=== PATIENT | female | born 1955 | race Caucasian/White ===

== ENCOUNTER 2017-05-22 05:15 | Day surgery (SDC) | payer OTHER ==
[2017-05-20 12:28] LABS: APPEARANCE,URINE CLEAR; BILIRUBIN,URINE NEGATIVE (NEGATIVE); COLOR,URINE STRAW; GLUCOSE, URINE NEGATIVE (NEGATIVE); KETONES,URINE NEGATIVE (NEGATIVE); LEUKOCYTE ESTERASE,URINE NEGATIVE (NEGATIVE); NITRITE,URINE NEGATIVE (NEGATIVE); PROTEIN,URINE NEGATIVE (NEGATIVE); URINE SPECIFIC GRAVITY 1.009; UROBILINOGEN,URINE NEGATIVE mg/dL (<2.0)
--- NOTE | 2017-05-20 12:31 | RADIOLOGY REPORT (SQ) ---
EXAM DESCRIPTION: CHEST PA/LATERAL COMPLETED DATE/TIME: 05/20/2017 12:23 pm REASON FOR STUDY: PRE-OP COMPARISON: None. EXAM PARAMETERS: NUMBER OF VIEWS: two views TECHNIQUE: Digital Frontal and Lateral radiographic views of the chest acquired. RADIATION DOSE: NA LIMITATIONS: none FINDINGS: LUNGS AND PLEURA: No opacities, masses or pneumothorax. No pleural effusion. MEDIASTINUM AND HILAR STRUCTURES: No masses or contour abnormalities. HEART AND VASCULAR STRUCTURES: Heart normal size. No evidence for failure. BONES: No acute findings. HARDWARE: None in the chest. OTHER: No other significant finding. IMPRESSION: NO SIGNIFICANT RADIOGRAPHIC FINDING IN THE CHEST. TECHNICAL DOCUMENTATION: JOB ID: [id number] [employer]- All Rights Reserved
[2017-05-20 12:45] LABS: HEMATOCRIT 41.3 % (36.0-47.0); HEMOGLOBIN 13.7 g/dL (12.0-15.5); MEAN CORPUSCULAR HEMOGLOBIN 28.8 pg (27.0-33.4); MEAN CORPUSCULAR HGB CONC 33.3 g/dL (32.0-36.0); MEAN CORPUSCULAR VOLUME 87 fl (80-97); PLATELET COUNT 303 10^3/uL (150-450); RED BLOOD COUNT 4.77 10^6/uL (3.72-5.28); RED CELL DISTRIBUTION WIDTH 13.2 % (11.5-14.0); WHITE BLOOD COUNT 8.5 10^3/uL (4.0-10.5)
[2017-05-20 13:05] LABS: ANION GAP 14 (5-19); BLOOD UREA NITROGEN 18 mg/dL (7-20); CALCIUM 10.5 mg/dL (8.4-10.2); CARBON DIOXIDE 30 mmol/L (22-30); CHLORIDE 96 mmol/L (98-107); GLUCOSE 88 mg/dL (75-110); POTASSIUM 4.4 mmol/L (3.6-5.0); SODIUM 139.5 mmol/L (137-145)
--- NOTE | 2017-05-20 21:27 | EKG REPORT ---
SEVERITY:- NORMAL ECG - SINUS RHYTHM : Confirmed by: Silvia Neves 20-May-2017 21:26:55
[~2017-05-22 05:15] MED LIST: CEFAZOLIN 1 GM/D5W RTU 1 GM/50 ML RTUPB IV PRN; LACTATED RINGERS 1000 ML IV PRN; LIDOCAINE 0.5% INJ-PF (5 MG/ML) 50 ML SDV SUBCUT PRN
[2017-05-22] MEDS ORDERED: FENTANYL CITRATE INJ/PF 100 MCG/2 ML AMPUL ONE (06:58)
[2017-05-22] MEDS ORDERED: PROPOFOL INJ 200 MG/20 ML VIAL IV ONE (06:58)
[2017-05-22] MEDS ORDERED: ONDANSETRON HCL INJ/PF 4 MG/2 ML SDV ONE (06:58)
[2017-05-22] MEDS ORDERED: ACETAMINOPHEN 100 ML IV ONE (06:58)
[2017-05-22] MEDS ORDERED: MIDAZOLAM 2 MG/2 ML INJ ONE (06:58)
[2017-05-22] MEDS ORDERED: LIDOCAINE 1%/EPINEPHRINE INJ 20 ML VIAL ONE (07:30)
[2017-05-22] MEDS ORDERED: FENTANYL CITRATE INJ/PF 100 MCG/2 ML AMPUL IV PRN ×3 (07:37)
[2017-05-22] MEDS ORDERED: MORPHINE SULFATE 10 MG/ML INJ IV PRN (07:37)
[2017-05-22] MEDS ORDERED: MEPERIDINE HCL/PF INJ 25 MG/1 ML DISP.SYRIN IV PRN (07:37)
[2017-05-22] MEDS ORDERED: DIPHENHYDRAMINE HCL 50 MG/ML VIAL IV PRN (07:37)
[2017-05-22] MEDS ORDERED: PROMETHAZINE HCL INJ 25 MG/1 ML VIAL IV PRN (07:37)
[2017-05-22] MEDS ORDERED: OXYCODONE-ACETAMINOPHEN 5-325 MG TABLET PO PRN ×2 (08:25→08:26)
[2017-05-22] MEDS ORDERED: PROMETHAZINE HCL INJ 25 MG/1 ML VIAL IM PRN (08:27)
[2017-05-22] MEDS ORDERED: MORPHINE SULFATE 10 MG/ML INJ INJ PRN (08:27)
[2017-05-22] MEDS ORDERED: RINGERS SOLUTION,LACTATED 1,000 ML IV PRN (08:28)
--- NOTE | 2017-05-22 08:31 | OPERATIVE REPORT E ---
Operative Report NAME: RED HUMPHREY : 1955 AGE: 61Y DATE OF SURGERY: 05/22/2017 ROOM: PREOPERATIVE DIAGNOSIS: Postmenopausal bleeding. POSTOPERATIVE DIAGNOSIS: Endometrial polyp. PROCEDURE: Operative hysteroscopy, polypectomy. SURGEON: TUCKER VITALE M.D. COMPLICATIONS: None. ANESTHESIA: LMAC, paracervical block. ESTIMATED BLOOD LOSS: Less than 10 mL. FINDINGS: Approximately 10 mm endometrial polyp, normal endometrial cavity otherwise noted. Biopsy performed throughout after polypectomy. INDICATIONS FOR PROCEDURE: The patient had an episode of postmenopausal bleeding and an endometrial lesion was noted on ultrasound. Due to the caliber of her vagina, she was brought to the operating room for further assessment due to visualization issues. The usual risks of bleeding, infection, anesthesia, and damage to organs and tissues were discussed and the patient understood. DESCRIPTION OF PROCEDURE: The patient was taken to the operating room after surgical timeout performed, EUA performed, and bladder was left undrained. SCDs were on and the cervix was slowly methodically dilated to admit an operative hysteroscope using lacrimal duct dilators all the way to the appropriate branch of the level for the scope. The cervix was then infiltrated of approximately 5 mL of 1% lidocaine with epinephrine. The scope was inserted. Polyp was noted. MyoSure device was deployed. The lesion was removed en toto. Sampling was done throughout leaving the denuded endometrial finding present. At completion of procedure, instruments were removed. Patient awakened and taken to recovery in stable condition. Bleeding was nil. DICTATING PHYSICIAN: TUCKER VITALE M.D. [id number] Y#: [id number] ID: [id number] JOB#: [id number] ACCT: [id number] cc:TUCKER VITALE M.D. >
[2017-05-22 10:10] VITALS: BP 128/53
== END 2017-05-22 09:40 | disposition home or self-care (01) ==
LOC: OROUT 05:15
PROVIDERS: ATTEND Specialist
PROC: 0UB98ZX Excision of Uterus, Via Natural or Artificial Opening Endoscopic, Diagnostic (ICD-10-PCS; principal; 2017-05-22 07:15)
DX: N95.0 Postmenopausal bleeding (principal); E11.9 Type 2 diabetes mellitus without complications; I10 Essential (primary) hypertension; E78.00 Pure hypercholesterolemia, unspecified; N84.0 Polyp of corpus uteri; D64.9 Anemia, unspecified; Z88.6 Allergy status to analgesic agent; Z79.82 Long term (current) use of aspirin
CPT/HCPCS: 93005; 86900; 86901; 36415; 86850; 82962; 85027; 80048; 81001; 88305 ×2; 71046; 93010; 58558; J2250; J0690; J3010; J3490; J2405; J2704; J0131; 952

== ENCOUNTER 2017-11-09 13:13 | Day surgery (SDC) | payer OTHER ==
[~2017-11-09 13:13] MED LIST changes: +BUPIVACAINE HCL 0.25 % INJ/PF (2.5 MG/1 ML) 30 ML VIAL ONE; -CEFAZOLIN 1 GM/D5W RTU 1 GM/50 ML RTUPB IV PRN; +CIPROFLOXACIN 400 MG/D5W RTU 400 MG/200 ML RTUPB IV PRN; -LACTATED RINGERS 1000 ML IV PRN; +LIDOCAINE 0.5% INJ-PF (5 MG/ML) 50 ML SDV ONE; -LIDOCAINE 0.5% INJ-PF (5 MG/ML) 50 ML SDV SUBCUT PRN; +RINGERS SOLUTION,LACTATED 1,000 ML IV PRN; +SUCCINYLCHOLINE CHLORIDE INJ 200 MG/10 ML VIAL ONE
[2017-11-09 13:54] LABS: HEMATOCRIT 38.5 % (36.0-47.0); HEMOGLOBIN 12.9 g/dL (12.0-15.5); MEAN CORPUSCULAR HEMOGLOBIN 29.6 pg (27.0-33.4); MEAN CORPUSCULAR HGB CONC 33.6 g/dL (32.0-36.0); MEAN CORPUSCULAR VOLUME 88 fl (80-97); PLATELET COUNT 279 10^3/uL (150-450); RED BLOOD COUNT 4.36 10^6/uL (3.72-5.28); RED CELL DISTRIBUTION WIDTH 13.5 % (11.5-14.0); WHITE BLOOD COUNT 9.8 10^3/uL (4.0-10.5)
[2017-11-09 14:13] LABS: ALANINE AMINOTRANSFERASE 36 U/L (9-52); ALBUMIN 4.4 g/dL (3.5-5.0); ALKALINE PHOSPHATASE 58 U/L (38-126); ANION GAP 12 (5-19); ASPARTATE AMINO TRANSFERASE 25 U/L (14-36); BILIRUBIN,DIRECT 0.2 mg/dL (0.0-0.4); BILIRUBIN,TOTAL 0.7 mg/dL (0.2-1.3); BLOOD UREA NITROGEN 20 mg/dL (7-20); CALCIUM 9.2 mg/dL (8.4-10.2); CARBON DIOXIDE 26 mmol/L (22-30); CHLORIDE 104 mmol/L (98-107); GLUCOSE 90 mg/dL (75-110); POTASSIUM 4.5 mmol/L (3.6-5.0); SODIUM 141.5 mmol/L (137-145); TOTAL PROTEIN 7.3 g/dL (6.3-8.2)
[2017-11-09] MEDS ORDERED: ONDANSETRON 4 MG TAB.RAPDIS ONE (14:31)
[2017-11-09] MEDS ORDERED: MEPERIDINE HCL/PF INJ 25 MG/1 ML DISP.SYRIN IV PRN (14:42)
[2017-11-09] MEDS ORDERED: MORPHINE SULFATE 10 MG/ML INJ IV PRN (14:42)
[2017-11-09] MEDS ORDERED: ONDANSETRON HCL INJ/PF 4 MG/2 ML SDV IV PRN (14:42)
[2017-11-09] MEDS ORDERED: FENTANYL CITRATE INJ/PF 100 MCG/2 ML AMPUL IV PRN ×3 (14:42)
[2017-11-09] MEDS ORDERED: DIPHENHYDRAMINE HCL 50 MG/ML VIAL IV PRN (14:42)
[2017-11-09] MEDS ORDERED: PROMETHAZINE HCL INJ 25 MG/1 ML VIAL IV PRN ×2 (14:42)
[2017-11-09] MEDS ORDERED: FENTANYL CITRATE INJ/PF 100 MCG/2 ML AMPUL ONE (14:46)
[2017-11-09] MEDS ORDERED: DEXAMETHASONE SOD PHOSPHATE INJ 4 MG/1 ML VIAL ONE (14:46)
[2017-11-09] MEDS ORDERED: ONDANSETRON HCL INJ/PF 4 MG/2 ML SDV ONE (14:46)
[2017-11-09] MEDS ORDERED: LIDOCAINE 2% INJ-PF (20 MG/ML) 10 ML AMPUL ONE (14:46)
[2017-11-09] MEDS ORDERED: MIDAZOLAM 2 MG/2 ML INJ ONE (14:46)
[2017-11-09] MEDS ORDERED: PROPOFOL INJ 200 MG/20 ML VIAL IV ONE (14:47)
--- NOTE | 2017-11-09 16:01 | Discharge Summary ---
Discharge Summary (SDC) - Discharge Final Diagnosis: #1 foreign body in right foot. 2. COPD. 3. Irritable bowel syndrome. 4. Diabetes mellitus type 2. 5. Hypertension. Date of Surgery: 11/09/17 Discharge Date: 11/09/17 Condition: Good Treatment or Instructions: Discharge home [after recovery per ASU criteria]. Diet diabetic,as tolerated, when fully awake advance as tolerated. Activities within moderation encouraged. Follow up in my office by appointment in about [1 week]. Call for appointment. Leave wounds [covered], [keep clean and dry, until office visit in 1 week]. Use crutches and orthopedic shoes for foot protection. Hold of on school/work [until evaluation in office]. Meds per med rec. Percocet. May shower [in 48 hrs], [try to keep operated area as dry as possible]. Prescriptions: Oxycodone HCl/Acetaminophen [Percocet 5-325 mg Tablet] 1 tab PO ASDIR PRN #15 tab PRN Reason: Referrals: MIGUEL HOOK MD [Primary Care Provider] - Discharge Diet: Other (Comments) - Diabetic Respiratory Treatments at Home: Deep Breathing/Coughing Discharge Activity: Activity As Tolerated Report the Following to Your Physician Immediately: Shortness of Breath, Unusual Bleeding
--- NOTE | 2017-11-09 16:25 | RADIOLOGY REPORT (SQ) ---
EXAM DESCRIPTION: NO CHG FLUORO; FOOT RIGHT 2 VIEWS COMPLETED DATE/TIME: 11/09/2017 4:17 pm; 11/09/2017 4:18 pm REASON FOR STUDY: FB REMOVAL RT FOOT S90.851A SUPERFICIAL FOREIGN BODY, RIGHT FOOT, INITIAL ENCOU COMPARISON: None. FLUOROSCOPY TIME: 0.4 minutes. 6 images saved to PACS. TECHNIQUE: Intra-operative images acquired during surgical procedure to evaluate progress. NUMBER OF IMAGES: 6 images. LIMITATIONS: None. FINDINGS: Images of the foot acquired during removal of a foreign body from the soft tissues. IMPRESSION: IMAGE(S) OBTAINED DURING PROCEDURE. COMMENT: Quality ID 145: Final reports for procedures using fluoroscopy that document radiation exp osure indices, or exposure time and number of fluorographic images (if radiation exposure indices are not available) Please consult full operative report of the attending physician for description of the procedure. TECHNICAL DOCUMENTATION: JOB ID: [id number] [employer]- All Rights Reserved Reading location - IP/workstation name: [email or web address]
--- NOTE | 2017-11-09 16:25 | RADIOLOGY REPORT (SQ) ---
EXAM DESCRIPTION: NO CHG FLUORO; FOOT RIGHT 2 VIEWS COMPLETED DATE/TIME: 11/09/2017 4:17 pm; 11/09/2017 4:18 pm REASON FOR STUDY: FB REMOVAL RT FOOT S90.851A SUPERFICIAL FOREIGN BODY, RIGHT FOOT, INITIAL ENCOU COMPARISON: None. FLUOROSCOPY TIME: 0.4 minutes. 6 images saved to PACS. TECHNIQUE: Intra-operative images acquired during surgical procedure to evaluate progress. NUMBER OF IMAGES: 6 images. LIMITATIONS: None. FINDINGS: Images of the foot acquired during removal of a foreign body from the soft tissues. IMPRESSION: IMAGE(S) OBTAINED DURING PROCEDURE. COMMENT: Quality ID 145: Final reports for procedures using fluoroscopy that document radiation exp osure indices, or exposure time and number of fluorographic images (if radiation exposure indices are not available) Please consult full operative report of the attending physician for description of the procedure. TECHNICAL DOCUMENTATION: JOB ID: [id number] [employer]- All Rights Reserved Reading location - IP/workstation name: [email or web address]
--- NOTE | 2017-11-09 17:09 | Operative Report ---
Operative Report DATE OF SURGERY: 11/09/17 PREOPERATIVE DIAGNOSIS: #1 foreign body in right foot. 2. COPD. 3. Irritable bowel syndrome. 4. Diabetes mellitus type 2. 5. Hypertension. POSTOPERATIVE DIAGNOSIS: #1 foreign body in right foot. 2. COPD. 3. Irritable bowel syndrome. 4. Diabetes mellitus type 2. 5. Hypertension. OPERATION: Fluoroscopically guided location and removal of foreign body in right foot. SURGEON: DAVID OCASIO SUPERVISOR RECORD PRESS: None. ANESTHESIA: GA TISSUE REMOVED OR ALTERED: Portion of glass was removed and is to be given to the patient. Along with the specimen photograph. COMPLICATIONS: None. ESTIMATED BLOOD LOSS: 5 mL. INTRAOPERATIVE FINDINGS: Of a well-defined sharp, radiolucent object in the right foot situated just posterior to the instep. Quite deep in the foot estimated to be about 1-1/2-2 cm beneath the skin. Fluoroscopy was invaluable in locating this lesion. The lesion was removed in entirety. There is a question of the more superficial. Possibly glass about 2 mm across. Not palpable nor readily accessible. This may need to be observed. PROCEDURE: PROCEDURE: The right foot was prepared with [Betadine] and draped out with sterile linen. After the"universal time-out", in which it was confirmed that the patient [ did receive antibiotic], the procedure commenced. The patient was appropriately anesthetized. With the patient's foot off the edge of the bed x-ray was used to locate this mass in 2 dimensions. 2 x 22-gauge spinal needles were inserted at right angles to the x-ray beam. In this way the topographic location of and depth of the mass was ascertained. An appropriate incision was sketched and locally anesthetized. An incision was now made approximately 2 cm long and in Marin's lines. The wound was probed. The wound was spread apart with a Weitlaner retractor. Located and gently grasped with a hemostat and withdrawn in entirety. It was put in the container and the specimen photographs taken. There seems no need to send it to pathology and it is to be given to the patient. X-ray was also used to try to identify a possibly small mass about 2 mm. Also by palpation. This did not seem feasible without damaging functional elements of the foot. The search was therefore abandoned. The wound the wound was now irrigated and closed using interrupted 3 0 Prolene vertical mattress sutures, dressed and the procedure concluded.
[2017-11-09 18:29] VITALS: BP 169/96
== END 2017-11-09 18:03 | disposition home or self-care (01) ==
LOC: OROUT 13:13
PROVIDERS: ATTEND Surgery
DX: S90.851A Superficial foreign body, right foot, initial encounter (principal); X58.XXXA Exposure to other specified factors, initial encounter; J44.9 Chronic obstructive pulmonary disease, unspecified; E11.9 Type 2 diabetes mellitus without complications; I10 Essential (primary) hypertension; K58.9 Irritable bowel syndrome, unspecified; M19.90 Unspecified osteoarthritis, unspecified site; M10.9 Gout, unspecified; E66.9 Obesity, unspecified; Z68.41 Body mass index [BMI] 40.0-44.9, adult; Z87.891 Personal history of nicotine dependence; Z88.6 Allergy status to analgesic agent; Z88.0 Allergy status to penicillin; Z79.899 Other long term (current) drug therapy
CPT/HCPCS: 36415; 85027; 80053; 73620; 28190; J2250; J1100; S0119; J3010; J3490 ×2; J0330; J2405; J2704; J0744; 01470

== ENCOUNTER 2019-07-05 04:03 | Emergency (ER) | payer OTHER ==
[2019-07-05 04:42] LABS: ABSOLUTE EOSINOPHILS # (AUTO) 0.1 10^3/uL (0.0-0.6); ABSOLUTE LYMPHOCYTES (AUTO) 1.6 10^3/uL (0.5-4.7); ABSOLUTE MONOCYTES (AUTO) 0.3 10^3/uL (0.1-1.4); ABSOLUTE NEUT (AUTO) 8.4 10^3/uL (1.7-8.2); BASOPHILS % (AUTO) 0.1 % (0-2); EOSINOPHILS % (AUTO) 0.6 % (0-6); HEMATOCRIT 42.6 % (36.0-47.0); HEMOGLOBIN 14.2 g/dL (12.0-15.5); LYMPHOCYTES % (AUTO) 15.3 % (13-45); MEAN CORPUSCULAR HEMOGLOBIN 29.2 pg (27.0-33.4); MEAN CORPUSCULAR HGB CONC 33.4 g/dL (32.0-36.0); MEAN CORPUSCULAR VOLUME 88 fl (80-97); MONOCYTES % (AUTO) 3.3 % (3-13); PLATELET COUNT 275 10^3/uL (150-450); RED BLOOD COUNT 4.86 10^6/uL (3.72-5.28); RED CELL DISTRIBUTION WIDTH 13.5 % (11.5-14.0); SEGMENTED NEUTROPHILS % (AUTO) 80.7 % (42-78); TOTAL CELLS COUNTED % (AUTO) 100 %; WHITE BLOOD COUNT 10.4 10^3/uL (4.0-10.5)
[2019-07-05 04:54] LABS: APPEARANCE,URINE CLEAR; BILIRUBIN,URINE NEGATIVE (NEGATIVE); COLOR,URINE YELLOW; GLUCOSE, URINE NEGATIVE (NEGATIVE); KETONES,URINE NEGATIVE (NEGATIVE); LEUKOCYTE ESTERASE,URINE NEGATIVE (NEGATIVE); NITRITE,URINE NEGATIVE (NEGATIVE); PROTEIN,URINE 30 mg/dL (NEGATIVE); URINE SPECIFIC GRAVITY 1.021; UROBILINOGEN,URINE NEGATIVE mg/dL (<2.0)
[2019-07-05 05:00] LABS: ALBUMIN 4.8 g/dL (3.5-5.0); ALKALINE PHOSPHATASE 64 U/L (38-126); ANION GAP 9 (5-19); ASPARTATE AMINO TRANSFERASE 23 U/L (14-36); BILIRUBIN,DIRECT 0.3 mg/dL (0.0-0.4); BILIRUBIN,TOTAL 0.5 mg/dL (0.2-1.3); BLOOD UREA NITROGEN 16 mg/dL (7-20); CALCIUM 9.7 mg/dL (8.4-10.2); CARBON DIOXIDE 31 mmol/L (22-30); CHLORIDE 100 mmol/L (98-107); GLUCOSE 142 mg/dL (75-110); POTASSIUM 4.5 mmol/L (3.6-5.0)
--- NOTE | 2019-07-05 06:11 | RADIOLOGY REPORT (SQ) ---
CT abdomen and pelvis with contrast on 07/05/2019 at 5:43 AM CLINICAL INDICATION: Periumbilical abdominal pain, nausea TECHNIQUE: Multiple axial images are obtained throughout the abdomen and pelvis following the administration of IV contrast, 93 mL of Omnipaque 350 contrast was administered intravenously without complication. This exam was performed according to our departmental dose-optimization program, which includes automated exposure control, adjustment of the mA and/or kV according to patient size and/or use of iterative reconstruction technique. Total DLP is 2151.3 mGy*cm. COMPARISON: None FINDINGS: Abdomen: The lung bases are clear. The patient is status post cholecystectomy. There is mild fatty infiltration of the liver. There is a tiny left renal cyst. Solid abdominal organs are otherwise unremarkable. Mild vascular calcifications are noted. There is no abdominal adenopathy. There is no free fluid or free air within the abdomen. GI tract is fluid filled including the colon that may be related to gastroenteritis. The abdominal portion of the GI tract is otherwise unremarkable. Pelvis: There is a small amount of free fluid in the pelvis. Pelvic organs appear unremarkable by CT. Pelvic portion of the GI tract including the appendix is otherwise unremarkable. Degenerative changes are noted in the spine. IMPRESSION: 1. Fluid-filled GI tract that may be related to a gastroenteritis. 2. Otherwise no acute abnormality.
[2019-07-05] MEDS ORDERED: DICYCLOMINE HCL 20 MG TABLET PO ONE (06:34)
--- NOTE | 2019-07-05 07:16 | ER Document Report ---
ED GI/ - General Chief Complaint: Abdominal Pain >50 Stated Complaint: ABDOMINAL PAIN Time Seen by Provider: 07/05/19 04:11 Primary Care Provider: JOSHUA PUCKETT DO [Primary Care Provider] - Follow up as needed Mode of Arrival: Medic Information source: Patient Notes: Otherwise healthy 63-year-old female presenting with sharp stabbing mid abdominal pain that started at 9:00 last night. Patient reports associated nausea without vomiting or diarrhea. Patient denies fever. She has not had any sick contacts lately. She denies any recent travel, cough or congestion. TRAVEL OUTSIDE OF THE [place] IN LAST 30 DAYS: No - Related Data Allergies/Adverse Reactions: Penicillins Allergy (Severe, Verified 07/05/19 04:11) ? aspirin [Aspirin] Adverse Reaction (Severe, Verified 07/05/19 04:11) BLEEDING Home Medications: venlanfaxine, spironolatone Past Medical History - General Information source: Patient - Social History Smoking Status: Former Smoker Family History: Reviewed & Not Pertinent Patient has suicidal ideation: No Patient has homicidal ideation: No - Past Medical History Cardiac Medical History: Reports: Hx Hypertension Denies: Hx Congestive Heart Failure, Hx Coronary Artery Disease, Hx Heart Attack Pulmonary Medical History: Reports: Hx Asthma, Hx Bronchitis, Hx COPD - NO INHALERS Denies: Hx Pneumonia Neurological Medical History: Denies: Hx Cerebrovascular Accident, Hx Seizures Endocrine Medical History: Reports: Hx Diabetes Mellitus Type 2 GI Medical History: Denies: Hx Hepatitis, Hx Hiatal Hernia, Hx Ulcer Musculoskeletal Medical History: Reports Hx Arthritis Infectious Medical History: Denies: Hx Hepatitis Past Surgical History: Reports: Hx Cholecystectomy. Denies: Hx Hysterectomy, Hx Mastectomy, Hx Open Heart Surgery, Hx Pacemaker - Immunizations Hx Diphtheria, Pertussis, Tetanus Vaccination: No Hx Pneumococcal Vaccination: 01/17/13 Review of Systems - Review of Systems Constitutional: No symptoms reported EENT: No symptoms reported Cardiovascular: No symptoms reported Respiratory: No symptoms reported Gastrointestinal: Abdominal pain, Nausea, Vomiting Genitourinary: No symptoms reported Female Genitourinary: No symptoms reported Musculoskeletal: No symptoms reported Skin: No symptoms reported Hematologic/Lymphatic: No symptoms reported Neurological/Psychological: No symptoms reported Physical Exam - Vital signs Vitals: Temp Pulse Resp BP Pulse Ox 97.4 F 81 16 169/66 H 98 07/05/19 04:05 07/05/19 04:05 07/05/19 04:05 07/05/19 04:05 07/05/19 04:05 - Notes Notes: PHYSICAL EXAMINATION: GENERAL: Well-appearing, well-nourished and in no acute distress. HEAD: Atraumatic, normocephalic. EYES: Pupils equal round and reactive to light, extraocular movements intact, conjunctiva are normal. ENT: Nares patent, oropharynx clear without exudates. Moist mucous membranes. NECK: Normal range of motion, supple without lymphadenopathy LUNGS: Breath sounds clear to auscultation bilaterally and equal. No wheezes rales or rhonchi. HEART: Regular rate and rhythm without murmurs ABDOMEN: Soft, nontender, nondistended abdomen. No guarding, no rebound. No masses appreciated. Female : deferred Musculoskeletal: Normal range of motion, no pitting or edema. No cyanosis. NEUROLOGICAL: Cranial nerves grossly intact. Normal speech, normal gait. Normal sensory, motor exams PSYCH: Normal mood, normal affect. SKIN: Warm, Dry, normal turgor, no rashes or lesions noted. Course - Re-evaluation Re-evalutation: Laboratory 07/05/19 07/05/19 07/05/19 04:30 04:30 04:35 WBC 10.4 RBC 4.86 Hgb 14.2 Hct 42.6 MCV 88 MCH 29.2 MCHC 33.4 RDW 13.5 Plt Count 275 Lymph % (Auto) 15.3 Dillon % (Auto) 3.3 Eos % (Auto) 0.6 Baso % (Auto) 0.1 Absolute Neuts (auto) 8.4 H Absolute Lymphs (auto) 1.6 Absolute Monos (auto) 0.3 Absolute Eos (auto) 0.1 Absolute Basos (auto) 0.0 Seg Neutrophils % 80.7 H Sodium 139.5 Potassium 4.5 Chloride 100 Carbon Dioxide 31 H Anion Gap 9 BUN 16 Creatinine 0.71 Est GFR ( Amer) > 60 Est GFR (MDRD) Non-Af > 60 Glucose 142 H Calcium 9.7 Total Bilirubin 0.5 Direct Bilirubin 0.3 Neonat Total Bilirubin Not Reportable Neonat Direct Bilirubin Not Reportable Neonat Indirect Bili Not Reportable AST 23 ALT 20 Alkaline Phosphatase 64 Total Protein 8.0 Albumin 4.8 Lipase 68.4 Urine Color YELLOW Urine Appearance CLEAR Urine pH 6.0 Ur Specific Clever 1.021 Urine Protein 30 H Urine Glucose (UA) NEGATIVE Urine Ketones NEGATIVE Urine Blood SMALL H Urine Nitrite NEGATIVE Urine Bilirubin NEGATIVE Urine Urobilinogen NEGATIVE Ur Leukocyte Esterase NEGATIVE Urine WBC (Auto) 3 Urine RBC (Auto) 3 Urine Bacteria (Auto) TRACE Squamous Epi Cells Auto 1 Urine Mucus (Auto) RARE Urine Ascorbic Acid NEGATIVE Abdomen/Pelvis CT 07/05/19 04:19 IMPRESSION: 1. Fluid-filled GI tract that may be related to a gastroenteritis. 2. Otherwise no acute abnormality. Patient reports she feels improved after administration of medications here in the emergency department. Her CT showed possible gastroenteritis. Labs were unremarkable. Patient will be discharged home with a prescription for Bentyl. Follow-up with PCP. - Vital Signs Vital signs: Temp Pulse Resp BP Pulse Ox 97.4 F 77 16 120/85 97 07/05/19 04:05 07/05/19 07:31 07/05/19 07:31 07/05/19 07:31 07/05/19 07:31 - Laboratory Result Diagrams: 07/05/19 04:30 07/05/19 04:30 Laboratory results interpreted by me: 07/05/19 07/05/19 07/05/19 04:30 04:30 04:35 Absolute Neuts (auto) 8.4 H Seg Neutrophils % 80.7 H Carbon Dioxide 31 H Glucose 142 H Urine Protein 30 H Urine Blood SMALL H Discharge - Discharge Clinical Impression: Gastroenteritis Condition: Stable Disposition: HOME, SELF-CARE Additional Instructions: Gastroenteritis You most likely have gastroenteritis. This is an irritation of the stomach and intestinal tract. It's usually caused by a virus, but can also be caused by bacteria, toxins that cause food poisoning, or excessive alcohol intake. Symptoms may include fever, painful abdominal cramps, nausea, vomiting, and diarrhea. Start with small amounts (two to six ounces) of clear liquids (soft drinks, herb teas, broth, etc). Try to take fluids frequently even if you are vomiting, to prevent dehydration. When liquids are being consumed successfully, advance to small amounts of bland food (mashed potato, toast) for 6 - 12 hours. Gastroenteritis rarely requires medication. It goes away by itself. Use good handwashing so you don't spread germs. Wash underwear in very hot water. If symptoms are severe, talk to the doctor. Call your physician if blood appears in your vomitus or stool, if vomiting lasts longer than 24 hours, if the abdominal pain worsens or becomes localized to one area, or if you develop high fever. Prescriptions: Dicyclomine HCl [Bentyl 20 mg Tablet] 20 mg PO QID #30 tablet Referrals: JOSHUA PUCKETT DO [Primary Care Provider] - Follow up as needed
[2019-07-05 07:32] VITALS: BP 120/85
== END 2019-07-05 07:31 | disposition home or self-care (01) ==
LOC: ER 04:03
DX: K52.9 Noninfective gastroenteritis and colitis, unspecified (principal); R10.9 Unspecified abdominal pain; R11.2 Nausea with vomiting, unspecified; Z88.0 Allergy status to penicillin; Z88.8 Allergy status to other drugs, medicaments and biological substances; Z79.899 Other long term (current) drug therapy; Z87.891 Personal history of nicotine dependence; I10 Essential (primary) hypertension; J44.9 Chronic obstructive pulmonary disease, unspecified; E11.9 Type 2 diabetes mellitus without complications
CPT/HCPCS: 99284; 36415; 83690; 85025; 80053; 81001; 74177; J3490